=== PATIENT | male | born 1995 | race African-American/Black ===

== ENCOUNTER 2023-10-03 20:31 | Inpatient (IN) | payer MEDICAID ==
[~2023-10-03] VITALS: Ht 175.3 cm; Wt 94.9 kg
[2023-10-03] MEDS ORDERED: ZOLPIDEM TARTRATE 10 MG TABLET PO PRN (21:00)
[2023-10-03] MEDS ORDERED: HALOPERIDOL 5 MG TABLET PO PRN (21:00)
[2023-10-03] MEDS ORDERED: LORazepam 2 MG TABLET PO PRN (21:00)
[2023-10-03 22:21] VITALS: BP 127/73; PULSE 75; RESP 16; TEMP 98.1; O2SAT 98
[2023-10-04] MEDS ORDERED: IBUPROFEN 600 MG TABLET PO PRN (07:30)
[2023-10-04] MEDS ORDERED: PETROLATUM,WHITE 28 GM JELLY TP PRN (07:30)
[2023-10-04] MEDS ORDERED: BACITRACIN 28 GM OINTMENT TP PRN (07:30)
[2023-10-04] MEDS ORDERED: LOPERAMIDE HCL 2 MG CAPSULE PO PRN (07:30)
[2023-10-04] MEDS ORDERED: MAGNESIUM HYDROXIDE SUSPENSION 30 ML UDCUP PO PRN (07:30)
[2023-10-04] MEDS ORDERED: ALBUTEROL SULFATE HFA 90 MCG/PUFF 8 GM INHALER IH PRN (07:30)
[2023-10-04] MEDS ORDERED: CloNIDine HCL 0.1 MG TABLET PO PRN (07:30)
[2023-10-04] MEDS ORDERED: BENZOCAINE/MENTHOL LOZENGE PO PRN (07:30)
[2023-10-04] MEDS ORDERED: MAG HYDROX/ALUMINUM HYD/SIMETH ES 30 ML SUSPENSION UDCUP PO PRN (07:30)
[2023-10-04] MEDS ORDERED: ACETAMINOPHEN 325 MG TABLET PO PRN (07:30)
[2023-10-04] MEDS ORDERED: ONDANSETRON 4 MG TABLET PO PRN (07:30)
[2023-10-04] MEDS ORDERED: OMEPRAZOLE 20 MG CAPSULE PO PRN (07:30)
[2023-10-04] MEDS ORDERED: DOCUSATE SODIUM 100 MG CAPSULE PO PRN (07:30)
[2023-10-04 08:54] LABS: BASOPHILS % (AUTO) 0.8 % (0.0-2.0); HEMATOCRIT 44.5 % (41-53); HEMOGLOBIN 14.8 g/dL (13.5-17.5); LYMPHOCYTES # (AUTO) 2.7 K/uL (1.0-4.8); LYMPHOCYTES % (AUTO) 47.7 % (22.0-44.0); MEAN CORPUSCULAR HEMOGLOBIN 30.6 pg (26.0-34.0); MEAN CORPUSCULAR HGB CONC 33.3 G/dL (31.0-37.0); MEAN CORPUSCULAR VOLUME 92 fL (80-100); MONOCYTES # (AUTO) 0.4 K/uL (0.1-1.0); MONOCYTES % (AUTO) 7.5 % (2.0-9.0); NEUTROPHILS # (AUTO) 2.3 K/uL (1.8-7.7); PLATELET COUNT (AUTO) 325 K/uL (150-450); RED BLOOD CELL COUNT(AUTO) 4.83 MIL/uL (4.50-5.90); RED CELL DISTRIBUTION WIDTH 13.7 % (11.5-14.5); WHITE BLOOD COUNT (AUTO) 5.5 K/uL (4.5-11.0)
[2023-10-04 09:11] LABS: HEMOGLOBIN A1C 5.6 % (3.8-5.6)
[2023-10-04 09:26] LABS: ALANINE AMINOTRANSFERASE 33 U/L (12-78); ALBUMIN 3.9 g/dL (3.4-5.0); ALKALINE PHOSPHATASE 92 U/L (46-116); ANION GAP 9 mmol/L (8-16); ASPARTATE AMINOTRANSFERASE 28 U/L (15-37); BILIRUBIN,TOTAL 0.6 mg/dL (0.1-1.0); CALCIUM, TOTAL 9.2 mg/dL (8.8-10.5); CARBON DIOXIDE 29 mmol/L (22-29); CHLORIDE 105 mmol/L (98-107); CHOLESTEROL 177 mg/dL (131-200); CREATININE 1.05 mg/dL (0.60-1.30); FREE T4 (FREE THYROXINE) 0.82 ng/dL (0.76-1.46); GLOMERULAR FILTR. RATE CALC > 60 mL/min (>60); GLUCOSE,RANDOM 91 mg/dL (70-110); HDL CHOLESTEROL 44 mg/dL (40-60); LDL CHOL (CALC.) 105 mg/dL (0-130); SODIUM SERUM 143 mmol/L (136-145); THYROID STIMULATING HORMONE 1.48 uIU/mL (0.36-3.74); TOTAL PROTEIN, SERUM 7.4 g/dL (6.4-8.2); TRIGLYCERIDES 141 mg/dL (15-150); UREA NITROGEN, BLOOD 10 mg/dL (7-18)
[2023-10-04 09:29] VITALS: BP 134/76; PULSE 70; RESP 14; TEMP 97.5; O2SAT 99
[2023-10-04 20:19] VITALS: BP 115/67; PULSE 64; RESP 17; TEMP 97.1; O2SAT 99
[2023-10-05] MEDS: ESCITALOPRAM OXALATE 10 MG TABLET PO SCH (08:36)
[2023-10-05 08:42] VITALS: BP 129/72; PULSE 64; RESP 16; TEMP 98; O2SAT 96
[2023-10-05 09:28] LABS: APPEARANCE,URINE TURBID (CLEAR); BILIRUBIN,URINE NEGATIVE (NEGATIVE); COLOR,URINE YELLOW (YELLOW); GLUCOSE, URINE (UA) NEGATIVE (NEGATIVE); KETONES,URINE NEGATIVE (NEGATIVE); LEUKOCYTE ESTERASE ,URINE NEGATIVE (NEGATIVE); NITRATE,URINE NEGATIVE (NEGATIVE); OCCULT BLOOD,URINE NEGATIVE (NEGATIVE); PH,URINE 6.5 (5.0-8.0); PH,URINE DRUG SCREEN 6.5 (5.0-8.0); PROTEIN,URINE TRACE mg/dL (NEGATIVE); SPECIFIC GRAVITIY, URINE 1.031 (1.003-1.030)
[2023-10-05 09:57] LABS: ALCOHOL, URINE DRUG SCREEN NEGATIVE (NEGATIVE); AMPHET/METH SCREEN,URINE NEGATIVE (NEGATIVE); BARBITURATE SCREEN, URINE NEGATIVE (NEGATIVE); BENZODIAZEPINES SCREEN,URINE POSITIVE (NEGATIVE); CANNABINOID SCREEN,URINE NEGATIVE (NEGATIVE); COCAINE SCREEN,URINE NEGATIVE (NEGATIVE); METHADONE SCREEN, URINE NEGATIVE (NEGATIVE); OPIATE SCREEN,URINE POSITIVE (NEGATIVE); PHENCYCLIDINE SCREEN,URINE NEGATIVE (NEGATIVE)
[2023-10-05 20:12] VITALS: BP 108/74; PULSE 68; RESP 16; TEMP 97.5; O2SAT 99
[2023-10-05] MEDS: MELATONIN 5 MG TABLET PO SCH (20:23)
[2023-10-05] MEDS: QUEtiapine FUMARATE 25 MG TABLET PO SCH (20:40)
[2023-10-05] MEDS ORDERED: MELATONIN 5 MG TABLET PO SCH (21:00)
[2023-10-06 08:40] VITALS: BP 126/67; PULSE 70; RESP 18; TEMP 98; O2SAT 100
[2023-10-06] MEDS: DULoxetine HCL 20 MG CAPSULE PO SCH (09:17)
[2023-10-06 20:45] VITALS: BP 119/61; PULSE 70; RESP 18; TEMP 96.5; O2SAT 96
[2023-10-07 09:03] VITALS: BP 127/77; PULSE 80; RESP 19; TEMP 97.7; O2SAT 99
[2023-10-07 20:52] VITALS: BP 114/64; PULSE 18; RESP 18; TEMP 97.2; O2SAT 96
[2023-10-08 08:24] VITALS: BP 113/74; PULSE 75; RESP 16; TEMP 97.7; O2SAT 99
[2023-10-08 20:58] VITALS: BP 139/84; PULSE 76; RESP 18; TEMP 97.2; O2SAT 95
[2023-10-09 08:26] VITALS: BP 124/67; PULSE 72; RESP 18; TEMP 97.8; O2SAT 96
[2023-10-09] MEDS ORDERED: QUET25TA PO (11:11)
[2023-10-09] MEDS ORDERED: DULO20CA71 PO (11:11)
== END 2023-10-09 15:23 | disposition home or self-care (01) | DRG 751 ==
LOC: B2S 20:57
PROVIDERS: ADMIT Psychiatry & Neurology Psychiatry; ATTEND Psychiatry & Neurology Psychiatry
PROC: GZHZZZZ Group Psychotherapy (ICD-10-PCS; principal; 2023-10-09)
PROC: GZ51ZZZ Individual Psychotherapy, Behavioral (ICD-10-PCS; 2023-10-09)
DX: F32.3 Major depressive disorder, single episode, severe with psychotic features (principal); R45.851 Suicidal ideations; Z91.199 Patient's noncompliance with other medical treatment and regimen due to unspecified reason; F10.10 Alcohol abuse, uncomplicated; F41.9 Anxiety disorder, unspecified; G47.00 Insomnia, unspecified; I10 Essential (primary) hypertension; Z59.00 Homelessness unspecified; Z88.8 Allergy status to other drugs, medicaments and biological substances; Z91.013 Allergy to seafood
CPT/HCPCS: 80053; 80061; 80307; 81003; 83036; 84439; 84443; 85025; 87081; 87481

== ENCOUNTER 2023-10-30 01:54 | Inpatient (IN) | payer MEDICAID ==
[~2023-10-30] VITALS: Ht 177.8 cm; Wt 93.9 kg
[~2023-10-30 01:54] MED LIST: DULO20CA71 PO; QUET25TA PO
[2023-10-30] MEDS ORDERED: LORazepam 2 MG TABLET PO PRN (02:45)
[2023-10-30] MEDS ORDERED: HALOPERIDOL 5 MG TABLET PO PRN (02:45)
[2023-10-30] MEDS ORDERED: ZOLPIDEM TARTRATE 10 MG TABLET PO PRN (02:45)
[2023-10-30 03:49] VITALS: BP 129/79; PULSE 67; RESP 18; TEMP 97.5; O2SAT 98
[2023-10-30 15:31] VITALS: BP 141/63; PULSE 98; RESP 18; TEMP 98; O2SAT 98
[2023-10-30] MEDS: GABAPENTIN 300 MG CAPSULE PO SCH (17:00)
[2023-10-30] MEDS: INFLUENZA VIRUS VACCINE TVS (6MO+) 2024-25/PF 45 MCG/0.5 ML SYRINGE IM. ONE (18:44)
[2023-10-30 20:42] VITALS: BP 128/90; PULSE 80; RESP 18; TEMP 97.8
[2023-10-30] MEDS: MELATONIN 5 MG TABLET PO SCH (21:57)
[2023-10-30] MEDS: QUEtiapine FUMARATE 25 MG TABLET PO SCH (21:57)
[2023-10-31 07:55] LABS: BASOPHILS % (AUTO) 0.6 % (0.0-2.0); EOSINOPHILS % (AUTO) 3.6 % (1.0-6.0); HEMATOCRIT 44.2 % (41-53); HEMOGLOBIN 14.6 g/dL (13.5-17.5); LYMPHOCYTES # (AUTO) 2.3 K/uL (1.0-4.8); LYMPHOCYTES % (AUTO) 40.6 % (22.0-44.0); MEAN CORPUSCULAR HEMOGLOBIN 30.2 pg (26.0-34.0); MEAN CORPUSCULAR HGB CONC 32.9 G/dL (31.0-37.0); MEAN CORPUSCULAR VOLUME 92 fL (80-100); MONOCYTES # (AUTO) 0.6 K/uL (0.1-1.0); MONOCYTES % (AUTO) 9.7 % (2.0-9.0); NEUTROPHILS # (AUTO) 2.6 K/uL (1.8-7.7); NEUTROPHILS % (AUTO) 45.5 % (40.0-70.0); PLATELET COUNT (AUTO) 271 K/uL (150-450); RED BLOOD CELL COUNT(AUTO) 4.83 MIL/uL (4.50-5.90); RED CELL DISTRIBUTION WIDTH 14.1 % (11.5-14.5); WHITE BLOOD COUNT (AUTO) 5.7 K/uL (4.5-11.0)
[2023-10-31 08:06] LABS: APPEARANCE,URINE CLEAR (CLEAR); BILIRUBIN,URINE NEGATIVE (NEGATIVE); COLOR,URINE LIGHT YELLOW (YELLOW); GLUCOSE, URINE (UA) NEGATIVE (NEGATIVE); KETONES,URINE NEGATIVE (NEGATIVE); LEUKOCYTE ESTERASE ,URINE NEGATIVE (NEGATIVE); NITRATE,URINE NEGATIVE (NEGATIVE); OCCULT BLOOD,URINE NEGATIVE (NEGATIVE); PH,URINE 5.5 (5.0-8.0); PH,URINE DRUG SCREEN 5.5 (5.0-8.0); PROTEIN,URINE NEGATIVE (NEGATIVE); SPECIFIC GRAVITIY, URINE 1.016 (1.003-1.030); UROBILINOGEN,URINE <=1.0 mg/dL (<=1.0)
[2023-10-31 08:35] LABS: HEMOGLOBIN A1C 5.7 % (3.8-5.6)
[2023-10-31 08:40] LABS: ALCOHOL, URINE DRUG SCREEN NEGATIVE (NEGATIVE); AMPHET/METH SCREEN,URINE NEGATIVE (NEGATIVE); BARBITURATE SCREEN, URINE NEGATIVE (NEGATIVE); BENZODIAZEPINES SCREEN,URINE NEGATIVE (NEGATIVE); CANNABINOID SCREEN,URINE NEGATIVE (NEGATIVE); COCAINE SCREEN,URINE NEGATIVE (NEGATIVE); METHADONE SCREEN, URINE NEGATIVE (NEGATIVE); OPIATE SCREEN,URINE NEGATIVE (NEGATIVE); PHENCYCLIDINE SCREEN,URINE NEGATIVE (NEGATIVE)
[2023-10-31 08:46] LABS: ALANINE AMINOTRANSFERASE 20 U/L (12-78); ALBUMIN 3.5 g/dL (3.4-5.0); ALKALINE PHOSPHATASE 74 U/L (46-116); ANION GAP 9 mmol/L (8-16); ASPARTATE AMINOTRANSFERASE 22 U/L (15-37); BILIRUBIN,TOTAL 0.4 mg/dL (0.1-1.0); CALCIUM, TOTAL 8.9 mg/dL (8.8-10.5); CARBON DIOXIDE 28 mmol/L (22-29); CHLORIDE 105 mmol/L (98-107); CHOL/HDL RATIO 3.4 (4.2-7.3); CHOLESTEROL 138 mg/dL (131-200); FREE T4 (FREE THYROXINE) 0.99 ng/dL (0.76-1.46); GLOMERULAR FILTR. RATE CALC > 60 mL/min (>60); GLUCOSE,RANDOM 85 mg/dL (70-110); HDL CHOLESTEROL 41 mg/dL (40-60); LDL CHOL (CALC.) 78 mg/dL (0-130); POTASSIUM 3.7 mmol/L (3.5-5.1); SODIUM SERUM 142 mmol/L (136-145); THYROID STIMULATING HORMONE 0.97 uIU/mL (0.36-3.74); TOTAL PROTEIN, SERUM 6.6 g/dL (6.4-8.2); TRIGLYCERIDES 95 mg/dL (15-150); UREA NITROGEN, BLOOD 11 mg/dL (7-18)
[2023-10-31 08:54] VITALS: BP 136/67; PULSE 85; RESP 18; TEMP 97.9; O2SAT 100
[2023-10-31] MEDS ORDERED: CITALOPRAM HYDROBROMIDE 20 MG TABLET PO SCH (09:00)
[2023-10-31] MEDS ORDERED: ESCITALOPRAM OXALATE 10 MG TABLET PO SCH (09:00)
[2023-10-31] MEDS: ESCITALOPRAM OXALATE 10 MG TABLET PO SCH (09:44)
[2023-10-31] MEDS: GABAPENTIN 100 MG CAPSULE PO PRN (16:59)
[2023-10-31 20:32] VITALS: BP 130/70; PULSE 86; RESP 18; TEMP 97.6; O2SAT 100
[2023-10-31] MEDS: ETHYL ALCOHOL 62% ANTISEPTIC NASAL SANITIZER 0.6 ML AMPUL NASAL SCH (21:51)
[2023-11-01 12:50] VITALS: BP 118/73; PULSE 75; RESP 18; TEMP 97; O2SAT 96
[2023-11-01 21:00] VITALS: BP 127/71; PULSE 76; RESP 18; TEMP 98; O2SAT 97
[2023-11-01] MEDS: CHLORHEXIDINE GLUCONATE 2% TOWELETTE [2'S/6'S] TP SCH (21:57)
[2023-11-02 08:28] VITALS: BP 130/63; PULSE 74; RESP 19; TEMP 97.4; O2SAT 98
[2023-11-02 21:07] VITALS: BP 137/75; PULSE 86; RESP 18; TEMP 97.5; O2SAT 96
[2023-11-03 08:12] VITALS: BP 130/76; PULSE 68; RESP 17; TEMP 97.7; O2SAT 100
[2023-11-03 20:21] VITALS: BP 119/68; PULSE 75; RESP 18; TEMP 97.6; O2SAT 100
[2023-11-04 12:53] VITALS: RESP 17
[2023-11-04 21:09] VITALS: BP 131/80; PULSE 68; RESP 17; TEMP 97.4; O2SAT 100
[2023-11-05 08:19] VITALS: BP 117/72; PULSE 67; RESP 17; TEMP 97.6; O2SAT 99
[2023-11-05 20:00] VITALS: BP 139/69; PULSE 80; RESP 18; TEMP 97.9; O2SAT 96
[2023-11-06 08:30] VITALS: BP 114/74; PULSE 71; RESP 16; TEMP 97.2; O2SAT 95
[2023-11-06 20:48] VITALS: BP 120/70; PULSE 81; RESP 18; TEMP 97.1; O2SAT 100
[2023-11-07 08:23] VITALS: BP 111/87; PULSE 76; RESP 17; TEMP 97.4; O2SAT 96
[2023-11-07 21:23] VITALS: BP 114/79; PULSE 74; RESP 18; TEMP 97.8; O2SAT 98
[2023-11-08 09:30] VITALS: BP 118/72; PULSE 78; RESP 17; TEMP 97.9; O2SAT 97
[2023-11-08 20:57] VITALS: BP 124/70; PULSE 72; RESP 16; TEMP 97.2; O2SAT 97
[2023-11-09 14:12] VITALS: BP 132/71; PULSE 77; RESP 17; TEMP 97.6; O2SAT 97
[2023-11-09 20:52] VITALS: BP 138/67; PULSE 79; RESP 18; TEMP 97.6; O2SAT 97
[2023-11-10 09:28] VITALS: BP 124/64; PULSE 65; RESP 18; TEMP 97.9; O2SAT 100
[2023-11-10 20:31] VITALS: BP 138/77; PULSE 76; RESP 17; TEMP 98; O2SAT 96
[2023-11-11 08:26] VITALS: BP 139/89; PULSE 78; RESP 18; TEMP 97.7; O2SAT 99
[2023-11-11 20:07] VITALS: BP 120/75; PULSE 68; RESP 18; TEMP 97.5; O2SAT 96
[2023-11-12 08:28] VITALS: BP 127/73; PULSE 90; RESP 18; TEMP 97.7; O2SAT 98
[2023-11-12 20:12] VITALS: BP 135/77; PULSE 78; RESP 16; TEMP 98.6; O2SAT 96
[2023-11-13 11:00] VITALS: BP 123/68; PULSE 97; RESP 18; TEMP 98; O2SAT 99
[2023-11-13 20:06] VITALS: BP 121/85; RESP 16; TEMP 98
[2023-11-14 20:15] VITALS: BP 117/69; PULSE 75; RESP 16; TEMP 97.5
[2023-11-15 08:31] VITALS: BP 113/63; PULSE 91; RESP 17; TEMP 97.7; O2SAT 97
[2023-11-15 22:04] VITALS: BP 136/63; PULSE 76; RESP 18; TEMP 97.6; O2SAT 95
[2023-11-16] MEDS ORDERED: MELA5TAB21 PO (07:17)
[2023-11-16] MEDS ORDERED: ESCI10TA PO (07:19)
== END 2023-11-16 10:54 | disposition home or self-care (01) | DRG 750 ==
LOC: B2S 02:34
PROVIDERS: ADMIT Psychiatry & Neurology Psychiatry; ATTEND Psychiatry & Neurology Psychiatry
DX: F25.9 Schizoaffective disorder, unspecified (principal); R45.851 Suicidal ideations; Z59.00 Homelessness unspecified; F10.10 Alcohol abuse, uncomplicated; I10 Essential (primary) hypertension; G47.00 Insomnia, unspecified; F41.9 Anxiety disorder, unspecified; F32.9 Major depressive disorder, single episode, unspecified
CPT/HCPCS: 80053; 80061; 80307; 81003; 83036; 84439; 84443; 85025; 87081